=== PATIENT | female | born 1960 | race Caucasian/White ===

== ENCOUNTER → 2017-02-27 | Outpatient (CLI) | payer OTHER | LOC: FIMAGING 10:11 | PROVIDERS: ATTEND Obstetrics & Gynecology | DX: D17.1 Benign lipomatous neoplasm of skin and subcutaneous tissue of trunk (principal) | CPT/HCPCS: G0204 ==

== ENCOUNTER 2017-06-05 07:53 | Emergency (ER) | payer OTHER ==
[2017-06-05 08:04] VITALS: O2SAT 96
--- NOTE | 2017-06-05 08:09 | EDPHY ---
H & P Stated Complaint: R hand pain Time Seen by Provider: 06/05/17 08:08 HPI/ROS: CHIEF COMPLAINT: Atraumatic right hand pain HISTORY OF PRESENT ILLNESS: The patient presents to the ED after she woke this morning with atraumatic pain on the palmar aspect of her right hand. She has pain and tenderness over the right hypo thenar eminence. She denies any complaints of fever, numbness, weakness or history of trauma. The patient has no history of arthritis or immunosuppressive condition. There is no obvious precipitant to this episode today. REVIEW OF SYSTEMS: A comprehensive 10 point review of systems is otherwise negative aside from elements mentioned in the history of present illness. Source: Patient Exam Limitations: No limitations - Personal History Current Tetanus/Diphtheria Vaccine: No Current Tetanus Diphtheria and Acellular Pertussis (TDAP): No - Medical/Surgical History Hx Asthma: No Hx Chronic Respiratory Disease: No Hx Diabetes: No Hx Cardiac Disease: No Hx Renal Disease: No Hx Cirrhosis: No Hx Alcoholism: No Hx HIV/AIDS: No Hx Splenectomy or Spleen Trauma: No Other PMH: HTN, - Social History Smoking Status: Never smoked - Physical Exam Exam: General Appearance: Alert, no distress Eyes: Pupils equal and round no pallor or injection ENT, Mouth: Mucous membranes moist Respiratory: There are no retractions, lungs are clear to auscultation Cardiovascular: Regular rate and rhythm Gastrointestinal: Abdomen is soft and nontender, no masses, bowel sounds normal Neurological: Normal motor and sensory exam Skin: No erythema Musculoskeletal: Tenderness to palpation over the right hypo thenar eminence without appreciable fluctuance. No clinical evidence of a septic arthritis involving the wrist. Constitutional: Initial Vital Signs Temperature (C) 36.5 C 06/05/17 08:01 Heart Rate 61 06/05/17 08:01 Respiratory Rate 16 06/05/17 08:01 O2 Sat (%) 96 06/05/17 08:01 O2 Delivery Mode Room Air Allergies/Adverse Reactions: tetracycline Allergy (Verified 06/05/17 08:00) Home Medications: Medication Instructions Recorded HCTZ (*) 06/05/17 Lipitor 06/05/17 Medical Decision Making ED Course/Re-evaluation: Patient presents to the ED with atraumatic hand pain. The patient is afebrile. There is no clinical evidence of a significant cellulitis or abscess. The patient is noted to be neurovascularly intact. The etiology of her symptoms are somewhat uncertain. Her laboratory testing is reassuring without evidence of an elevated white cell count, sed rate and CRP. At this point time I will immobilize the patient in a splint. I will recommend she began oz Toradol anti- inflammatories, that she observed for any progression of her symptoms over the next 24 hr. I would like her to contact our hand surgeon to schedule a follow- up visit for any ongoing symptoms. She is instructed to return to the ED for markedly worsening symptoms or other concerns. Differential Diagnosis: Differential diagnosis considered includes tendinitis, cellulitis, abscess, septic arthritis - Data Points Laboratory Results: Laboratory Results 06/05/17 08:42 06/05/17 08:42 06/05/17 06/05/17 08:42 08:42 WBC 7.33 10^3/uL 10^3/uL (3.80-9.50) RBC 4.84 10^6/uL 10^6/uL (4.18-5.33) Hgb 13.8 g/dL g/dL (12.6-16.3) Hct 42.3 % % (38.0-47.0) MCV 87.4 fL fL (81.5-99.8) MCH 28.5 pg pg (27.9-34.1) MCHC 32.6 g/dL g/dL (32.4-36.7) RDW 13.0 % % (11.5-15.2) Plt Count 257 10^3/uL 10^3/uL (150-400) MPV 10.1 fL fL (8.7-11.7) Neut % (Auto) 63.7 % % (39.3-74.2) Lymph % (Auto) 28.1 % % (15.0-45.0) Gage % (Auto) 6.8 % % (4.5-13.0) Eos % (Auto) 0.8 % % (0.6-7.6) Baso % (Auto) 0.5 % % (0.3-1.7) Nucleat RBC Rel Count 0.0 % % (0.0-0.2) Absolute Neuts (auto) 4.66 10^3/uL 10^3/uL (1.70-6.50) Absolute Lymphs (auto) 2.06 10^3/uL 10^3/uL (1.00-3.00) Absolute Monos (auto) 0.50 10^3/uL 10^3/uL (0.30-0.80) Absolute Eos (auto) 0.06 10^3/uL 10^3/uL (0.03-0.40) Absolute Basos (auto) 0.04 10^3/uL 10^3/uL (0.02-0.10) Absolute Nucleated RBC 0.00 10^3/uL 10^3/uL (0-0.01) Immature Gran % 0.1 % % (0.0-1.1) Immature Gran # 0.01 10^3/uL 10^3/uL (0.00-0.10) ESR 6 MM/HR MM/HR (0-30) Sodium 145 mEq/L mEq/L (135-145) Potassium 3.4 mEq/L L mEq/L (3.5-5.2) Chloride 106 mEq/L mEq/L (97-110) Carbon Dioxide 26 mEq/l mEq/l (22-31) Anion Gap 13 mEq/L mEq/L (8-16) BUN 17 mg/dL mg/dL (7-23) Creatinine 0.8 mg/dL mg/dL (0.6-1.0) Estimated GFR > 60 Glucose 96 mg/dL mg/dL (70-100) Calcium 9.9 mg/dL mg/dL (8.5-10.4) C-Reactive Protein < 5.0 mg/L mg/L (<10.0) Departure - Departure Disposition: Home, Routine, Self-Care Clinical Impression: Hand pain, right Condition: Good Instructions: Musculoskeletal Pain (ED) Additional Instructions: 1. Please wear splint for comfort and immobilization. 2. Take Ibuprofen or Motrin 600 mg by mouth three times a day. 3. Return to the ED for markedly increasing pain, redness, swelling, fever as this may be the sign of a more serious conditions such as infection. 4. Please contact our on-call hand surgeon, Dr. Barrientos, for any ongoing symptoms and to schedule a recheck in the next 1-2 days. Referrals: Edinson Barrientos MD [Medical Doctor] - As per Instructions
[2017-06-05 08:52] LABS: PLATELET COUNT 257 10^3/uL (150-400)
[2017-06-05 09:52] VITALS: BP 144/62; PULSE 74; RESP 18; TEMP 98.1
== END 2017-06-05 09:49 | disposition home or self-care (01) ==
DX: M79.641 Pain in right hand (principal); I10 Essential (primary) hypertension

== ENCOUNTER → 2018-03-08 | Outpatient (CLI) | payer OTHER | LOC: FIMAGING 09:50 | PROVIDERS: ATTEND Family Medicine | DX: Z12.31 Encounter for screening mammogram for malignant neoplasm of breast (principal); Z85.3 Personal history of malignant neoplasm of breast ==